=== PATIENT | male | born 1975 | race African-American/Black ===

== ENCOUNTER 2025-07-31 07:52 | Emergency (ER) | payer SELFPAY ==
[2025-07-31 08:38] LABS: Glucose, Urine (Dipstick) Negative (Negative); Leukocyte Negative (Negative); Protein, Urine (Dipstick) 100 mg/dL (Neg-Trace); Specific Gravity, Urine Greater/Equal 1.030 (1.005-1.030)
[2025-07-31 08:54] LABS: ALT (SGPT) 22 U/L (Less than 45); AST (SGOT) 49 U/L (11-34); Albumin 4.2 g/dL (3.1-4.5); Alkaline Phosphatase 102 U/L (40-110); Anion Gap 22 mmol/L (10-20); BUN (Urea Nitrogen) 13 mg/dL (8.9-20.6); Bilirubin, Total 1.4 mg/dL (0.3-1.2); Calc. Creatinine Clearance 0 mL/min (70-130); Calcium 9.1 mg/dL (7.8-10.44); Carbon Dioxide 13 mmol/L (22-29); Chloride 103 mmol/L (98-107); Globulin 4.6 g/dL (2.4-3.5); Glucose 77 mg/dL (70-105); Lipase 8 U/L (8-78); Potassium 3.3 mmol/L (3.5-5.1); Sodium 135 mmol/L (136-145)
[2025-07-31] MEDS ORDERED: Iopamidol 370 76% 100 ML VIAL ONE (09:00)
[2025-07-31 09:05] LABS: Hematocrit 44.9 % (42.0-52.0); Mean Corpuscular Volume 79.9 fl (78.0-98.0); Red Blood Cell (RBC) Count 5.61 mill/uL (4.70-6.10); White Blood Cell (WBC) Count 14.9 10x3/uL (4.8-10.8)
[2025-07-31 09:06] LABS: Mean Corpuscular Hemoglobin 26.1 pg (27.0-31.0); Platelet Count 340 10x3/uL (130-400)
[2025-07-31 09:07] LABS: Hemoglobin 14.6 g/dL (14.0-18.0); MDiff Complete? YES; Manual Diff?? YES; Platelet Adequacy Comment Platelets Normal
== END 2025-07-31 12:53 | disposition home or self-care (01) ==
LOC: NAV ERS 07:52
DX: E86.0 Dehydration (principal); R11.16 Cannabis hyperemesis syndrome; F17.200 Nicotine dependence, unspecified, uncomplicated
CPT/HCPCS: 74177; 80053; 81001; 83690; 85025; 87428; 96361; 96365; 96375; J1630; J2550; J7030; Q9967